=== PATIENT | female | born 1965 | race Caucasian/White ===

== ENCOUNTER 2025-03-27 06:17 | Day surgery (SDC) | payer BC, SELFPAY | END 2025-03-27 12:29 | disposition home or self-care (01) | LOC: GI 06:17 | PROVIDERS: ATTENDING PHYSICIAN Internal Medicine Gastroenterology; FAMILY PHYSICIAN Family Medicine | DX: Z12.11 Encounter for screening for malignant neoplasm of colon (principal); K64.9 Unspecified hemorrhoids; K63.5 Polyp of colon | CPT/HCPCS: 45385; 88305 ==